=== PATIENT | female | born 2000 | race Caucasian/White ===

== ENCOUNTER 2018-10-20 14:01 | Emergency (ER) | payer BC, OTHER ==
[2018-10-20 14:08] VITALS: TEMP 98.5
--- NOTE | 2018-10-20 14:11 | PDOC ---
Rapid Medical Evaluation Time Seen by Provider: 10/20/18 14:05 Medical Evaluation: 10/20/18 14:06 I have performed a brief in-person evaluation of this patient. The patient presents with a chief complaint of: lower right quadrant, + vomiting , Pertinent physical exam findings: Abd, S/NT I have ordered the following: UA/ UcG, Ucx The patient will proceed to the ED for further evaluation. 10/20/18 14:06 10/20/18 14:09
[2018-10-20] MEDS ORDERED: SODIUM CHLORIDE 1,000 ML IV STA (14:43)
[2018-10-20] MEDS ORDERED: ONDANSETRON 4 MG/2 ML VIAL IVPB ONE (14:43)
[2018-10-20] MEDS ORDERED: ACETAMINOPHEN 1000 MG/100 ML VIAL (NON FORMULARY) IVPB ONE (14:43)
--- NOTE | 2018-10-20 14:43 | PDOC ---
Attending Attestation - Resident Resident Name: SophiaSaRadha - ED Attending Attestation I have performed the following: I have examined & evaluated the patient, The case was reviewed & discussed with the resident, I agree w/resident's findings & plan, Exceptions are as noted - HPI HPI: 10/20/18 15:17 Ms. 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 ENT: Ears normal, nares patent, oropharynx clear without exudates. Moist mucous membranes. No tonsillar enlargement, no exudates NECK: Normal range of motion, supple LUNGS: Breath sounds equal, clear to auscultation bilaterally. No wheezes, and no crackles. HEART:Regular rate and rhythm, normal S1 and S2 without murmur, rub or gallop. ABDOMEN: Soft, RLQ tenderness to palpation EXTREMITIES: Normal range of motion, no edema. NEUROLOGICAL: Cranial nerves II through XII grossly intact. Normal speech. No focal neurological deficits. SKIN: Warm, Dry, normal turgor, no rashes or lesions noted. 10/20/18 15:23 - Medical Decision Making 10/20/18 15:24 18 yo F presenting with RLQ pain DD includes but is not limited to: Torsion, Ruptured OV cyst, Appendicitis, Colitis, intra-abdominal abscess Will do: Labs UA [facility] [place] Labs wnl U/S pending Signed out to Dr. Escoto
[2018-10-20] MEDS ORDERED: ACETAMINOPHEN INJECTION 100 ML IVPB ONE ×2 (14:55→15:13)
[2018-10-20] MEDS ORDERED: ONDANSETRON 4 MG/2 ML VIAL ONE ×2 (14:56→15:14)
--- NOTE | 2018-10-20 15:21 | PDOC ---
History of Present Illness - General Chief Complaint: Pain, Acute Stated Complaint: RT. ABD. PAIN Time Seen by Provider: 10/20/18 14:05 History Source: Patient Exam Limitations: No Limitations - History of Present Illness Initial Comments: 10/20/18 15:13 Pt is a 18yo F with no significant PMH presenting to ED with RLQ pain x1 week. Pain is in the RLQ, does not radiate, associated with lower back pain, worsened by walking, alleviated but not eliminated with rest, feels achy. She has had similar pains in the past, most recent 3-4 months ago but she did not seek care at that time and pain has been worse than previous episodes. Associated with nausea and vomiting when pain is high but she is tolerating po intake. Also endorses chills. LMP was 2 weeks ago, is irregular (has periods more than once/ month). Denies fever, diarrhea, constipation, dysuria, flank pain, vaginal discharge, spotting, rashes, anorexia, chest pain, sob, headache. She has had 1 sexual partner for the past 3 months, no history of STD's. She denies taking medications, but is on nausea medications given to her from urgent care. PMD: PMH: none PSH: none Meds: none Allergies: nkda Past History - Past Medical History Allergies/Adverse Reactions: Allergies Allergy/AdvReac Type Severity Reaction Status Date / Time No Known Allergies Allergy Verified 10/20/18 14:08 Home Medications: Ambulatory Orders Ibuprofen 600 mg PO TID #15 tablet 10/20/18 COPD: No - Suicide/Smoking/Psychosocial Hx Smoking History: Current every day smoker Number of Cigarettes Smoked Daily: 10 Information on smoking cessation initiated: No Hx Alcohol Use: Yes (DAILY) Drug/Substance Use Hx: No Review of Systems - Review of Systems Constitutional: Yes: Chills. No: Fever HEENTM: No: Symptoms Reported Respiratory: No: Symptoms reported Cardiac (ROS): No: Symptoms Reported ABD/GI: Yes: See HPI, Nausea, Vomiting, Abdominal cramping. No: Constipated, Diarrhea, Rectal Bleeding, Tarry Stools : No: Burning, Dysuria, Flank Pain, Hematuria Musculoskeletal: No: Back Pain, Joint Pain Integumentary: No: Symptoms Reported Neurological: No: Headache, Numbness, Seizure *Physical Exam - Vital Signs Last Vital Signs Temp Pulse Resp BP Pulse Ox 98.5 F 110 H 10 141/90 100 10/20/18 14:05 10/20/18 14:05 10/20/18 14:05 10/20/18 14:05 10/20/18 14:05 - Physical Exam General Appearance: Yes: Nourished, Appropriately Dressed. No: Apparent Distress HEENT: positive: EOMI, SHERRILL, Normal ENT Inspection Neck: positive: Trachea midline, Supple. negative: Lymphadenopathy (R), Lymphadenopathy (L) Respiratory/Chest: positive: Lungs Clear, Normal Breath Sounds Cardiovascular: positive: Regular Rhythm, Regular Rate. negative: Murmur Vascular Pulses: Dorsalis-Pedis (R): 2+, Doralis-Pedis (L): 2+ Female Pelvic Exam: positive: normal size ovaries. negative: CMT, adnexal tenderness Gastrointestinal/Abdominal: positive: Normal Bowel Sounds, Soft, Rebound (RLQ), Tenderness (RLQ). negative: Guarding Musculoskeletal: negative: CVA Tenderness Extremity: positive: Normal Capillary Refill. negative: Pedal Edema Integumentary: positive: Normal Color, Dry, Warm Neurologic: positive: flute polisher II-XII NML intact, Fully Oriented, Alert, Normal Mood/ Affect, Normal Response, Motor Strength 5/ ED Treatment Course - LABORATORY CBC & Chemistry Diagram: 10/20/18 15:00 10/20/18 15:00 - RADIOLOGY Radiology Studies Ordered: Category Date Time Status ABDOMEN US [US] Stat Ultrasound 10/20/18 14:43 Ordered TRANSVAGINAL ULTRASOUND US [US] Stat Ultrasound 10/20/18 14:43 Ordered Medical Decision Making - Medical Decision Making 10/20/18 15:21 Pt is a 18yo F with no significant PMH presenting to ED with RLQ pain x1 week. Pain is in the RLQ, does not radiate, associated with lower back pain, worsened by walking, alleviated but not eliminated with rest, feels achy. She has had similar pains in the past, most recent 3-4 months ago but she did not seek care at that time and pain has been worse than previous episodes. Associated with nausea and vomiting when pain is high but she is tolerating po intake. Also endorses chills. LMP was 2 weeks ago, is irregular (has periods more than once/ month). Denies fever, diarrhea, constipation, dysuria, flank pain, vaginal discharge, spotting, rashes, anorexia, chest pain, sob, headache. She has had 1 sexual partner for the past 3 months, no history of STD's. She denies taking medications, but is on nausea medications given to her from urgent care. Vitals: tachycardia PE: RLQ tenderness +rebound, NO adnexal tenderness, no CMT, no flank tenderness. DDx includes but not limited to appendicitis, torsion, TOA, PID, Cyst, , colitis, kidney stone, pyelonephritis, uti, colitis, menstrual cramping, msk -UA, UCx, Upreg, cbc, cmp, lipase -TVUS, abdominal US to check for appendicitis. If appendix cannot be visualized , considering CTAP -IV fluids, IV tylenol Pt feeling slightly better. LAbs wnl. negative , negative ua, no white count. US: l and r ovarian cysts, no other pathology, appendix not visualized. CTAP ordered with iv contrast: ruptured ovarian cyst. No other signs of appendicitis although appendix could not be properly visualized. given lack of white count, pain getting better, pt tolerating po, afebrile, less likely appendicitis. most likely ruptured cyst. Given referral to sr vice president and rx for ibuprofen. safe for dc home. pt understands and agrees to plan. given return precautions. *DC/Admit/Observation/Transfer Diagnosis at time of Disposition: Ruptured ovarian cyst - Discharge Dispostion Disposition: HOME Condition at time of disposition: Improved Decision to Admit order: No - Prescriptions Prescriptions: Ibuprofen 600 mg PO TID #15 tablet - Referrals Referrals: Aggie March DO [Staff Physician] - - Patient Instructions Printed Discharge Instructions: DI for Ovarian Cyst Additional Instructions: You were seen in the emergency room today for pain in the right side. The CT scan showed a ruptured ovarian cyst. Cysts can be normal, the ultrasound showed multiple cysts on both ovaries. I recommend making an appointment with an powerhouse engineer. Information is provided below. You can take ibuprofen or Advil for the pain as needed. A prescription for ibuprofen was sent to your pharmacy. Please take as directed. You can also apply ice packs. Please come back to the emergency room if pain gets worse, you develop fever or if any new concerning symptom develops. Thank you - Post Discharge Activity
[2018-10-20 15:24] LABS: BASO % 0.8 % (0-2.0); HEMATOCRIT 41.2 % (32.4-45.2); HEMOGLOBIN 13.6 GM/dL (10.7-15.3); MCH 27.9 pg (25.7-33.7); MEAN CELL VOLUME 84.5 fl (80-96); MEAN PLT VOLUME 8.1 fl (7.5-11.1); MONO % 10.4 % (3.8-10.2); NEUT % 54.8 % (42.8-82.8); PLATELET COUNT 332 K/MM3 (134-434); RBC 4.88 M/mm3 (3.60-5.2); RDW 15.8 % (11.6-15.6); WHITE BLOOD COUNT 5.9 K/mm3 (4.0-10.0)
[2018-10-20 15:27] LABS: EPI CELLS 6.1 /HPF (0-5/HPF); HYALINE CASTS 12 /lpf (0-8); PH,URINE >= 9.0 (5.0-8.0); URINE APPEARANCE CLEAR; URINE BILIRUBIN NEGATIVE (NEGATIVE); URINE COLOR DK YELLOW; URINE GLUCOSE (UA) NEGATIVE (NEGATIVE); URINE KETONE TRACE (NEGATIVE); URINE LEUK ESTERASE TRACE (NEGATIVE); URINE NITRITE NEGATIVE (NEGATIVE); URINE PROTEIN 1+ (NEGATIVE); URINE RBC 2 /hpf (0-4); URINE WBC 2 /hpf (0-5)
[2018-10-20 15:50] LABS: ALBUMIN 4.4 g/dl (3.4-5.0); BILIRUBIN,TOTAL 0.4 mg/dL (0.2-1); BLOOD UREA NITROGEN 7.1 mg/dL (7-18); CALCIUM 9.6 mg/dL (8.5-10.1); CREATININE 0.7 mg/dL (0.55-1.3); POTASSIUM 4.4 mmol/L (3.5-5.1); TOT PROT 8.3 g/dl (6.4-8.2)
[2018-10-20] MEDS ORDERED: IBUPROFEN 600 MG TABLET (FP) PO ONE ×2 (18:20→18:29)
[2018-10-20 18:36] VITALS: BP 115/76; PULSE 66
== END 2018-10-20 18:37 | disposition home or self-care (01) ==
LOC: JER 14:01
PROC: 3E033GC Introduction of Other Therapeutic Substance into Peripheral Vein, Percutaneous Approach (ICD-10-PCS; principal; 2018-10-20)
PROC: 3E033NZ Introduction of Analgesics, Hypnotics, Sedatives into Peripheral Vein, Percutaneous Approach (ICD-10-PCS; 2018-10-20)
DX: N83.201 Unspecified ovarian cyst, right side (principal); N83.202 Unspecified ovarian cyst, left side
CPT/HCPCS: 36415; 74177-TC; 76830-TC; 76856-TC; 80053; 81003; 83605; 83690; 84703; 85025; 87086; 99283-25; J0131; J7030

== ENCOUNTER 2024-03-03 06:25 | Inpatient (IN) | payer BC, OTHER ==
[2024-03-03] MEDS: ELECTROLYTE-148 SOLN 1,000 ML IV SCH (08:05)
[2024-03-03] MEDS ORDERED: AMPICILLIN SODIUM 2 GM VIAL ONE (08:06)
[2024-03-03] MEDS: AMPICILLIN - 2 GM in SODIUM CHLORIDE 100 ML IVPB ONE (08:10)
[2024-03-03 08:28] LABS: BASO % 0.3 % (0-2.0); EOS % 0.2 % (0-4.5); HEMATOCRIT 36.4 % (32.4-45.2); HEMOGLOBIN 12.3 GM/dL (10.7-15.3); MCH 29.2 pg (25.7-33.7); MCHC 33.8 g/dl (32.0-36.0); MEAN CELL VOLUME 86.3 fl (80-96); MEAN PLT VOLUME 9.1 fl (7.5-11.1); MONO % 4.9 % (3.8-10.2); NEUT % 79.6 % (42.8-82.8); PLATELET COUNT 201 10^3/uL (134-434); RBC 4.22 M/mm3 (3.60-5.2); WHITE BLOOD COUNT 9.5 K/mm3 (4.0-10.0)
[2024-03-03 08:32] VITALS: BMI 30.2
[2024-03-03 08:35] LABS: INR 0.86 (0.83-1.09); PROTHROMBIN TIME (PATIENT) 9.9 SEC (9.7-13.0)
[2024-03-03 08:38] LABS: ACTIVATED PTT 27.8 SECONDS (25.2-36.5)
[2024-03-03 08:54] LABS: POTASSIUM 3.7 mmol/L (3.5-5.1)
[2024-03-03 08:55] LABS: CALCIUM 9.1 mg/dL (8.5-10.1)
[2024-03-03 08:56] LABS: BLOOD UREA NITROGEN 9.6 mg/dL (7-18)
[2024-03-03] MEDS ORDERED: NALOXONE HCL 0.4 MG/ML VIAL IVPUSH PRN (08:57)
[2024-03-03] MEDS ORDERED: FENTANYL/BUPIVACAINE/NS/PF - PCEA - 50 ML DISP.SYRIN EP ONE ×2 (08:59→12:00)
[2024-03-03 09:00] LABS: CREATININE 0.5 mg/dL (0.55-1.3)
[2024-03-03] MEDS: FENTANYL/BUPIVACAINE/NS/PF - PCEA - 50 ML DISP.SYRIN EP SCH (09:10)
[2024-03-03] MEDS ORDERED: AMPICILLIN SODIUM 1 GM VIAL ONE (11:45)
[2024-03-03] MEDS: AMPICILLIN - 1 GM in SODIUM CHLORIDE 100 ML IVPB SCH (11:53)
[2024-03-03 12:06] LABS: HEPATITIS B SURFACE AG MATERN NON-REACTIVE (NONREACTIVE)
[2024-03-03 12:07] LABS: SYPHILIS W/ RPR CONF NON-REACTIVE (NONREACTIVE)
[2024-03-03] MEDS ORDERED: OXYTOCIN 20 UNITS in 0.9% NS 20 UNIT/1,000 ML INFUS.BAG IV ONE ×2 (12:28→15:53)
[2024-03-03] MEDS: OXYTOCIN 20 UNITS in 0.9% NS 20 UNIT/1,000 ML INFUS.BAG IV SCH (12:43)
[2024-03-03] MEDS ORDERED: LIDOCAINE HCL 1% PRESERVATIVE FREE - 30ML VIAL ONE (12:46)
[2024-03-03] MEDS ORDERED: METHYLERGONOVINE MALEATE 0.2 MG/1 ML AMP IM PRN (13:10)
[2024-03-03] MEDS ORDERED: BISACODYL 10 MG SUPP.RECT RC PRN (13:10)
[2024-03-03] MEDS ORDERED: ACETAMINOPHEN 325 MG TABLET (FP) PO PRN (13:10)
[2024-03-03 17:20] LABS: HIV INTERPRETATION NEGATIVE (NEGATIVE)
[2024-03-03] MEDS: IBUPROFEN 600 MG TABLET (FP) PO PRN (18:20)
[2024-03-03] MEDS: WITCH HAZEL 50% (TUCKS) 40 PAD/JAR PAD TP PRN (20:00)
[2024-03-04 08:26] LABS: BASO % 0.5 % (0-2.0); EOS % 1.2 % (0-4.5); HEMATOCRIT 31.6 % (32.4-45.2); HEMOGLOBIN 10.6 GM/dL (10.7-15.3); LYMPH % 25.8 % (8-40); MCH 29.6 pg (25.7-33.7); MCHC 33.5 g/dl (32.0-36.0); MEAN CELL VOLUME 88.3 fl (80-96); MEAN PLT VOLUME 8.8 fl (7.5-11.1); MONO % 8.4 % (3.8-10.2); NEUT % 64.1 % (42.8-82.8); PLATELET COUNT 185 10^3/uL (134-434); RBC 3.57 M/mm3 (3.60-5.2); WHITE BLOOD COUNT 9.3 K/mm3 (4.0-10.0)
[2024-03-04] MEDS: BENZOCAINE 20% 57 GM BOTTLE TP PRN (10:44)
[2024-03-04] MEDS: ESCITALOPRAM OXALATE 10 MG TABLET PO SCH (10:45)
[2024-03-04 21:43] VITALS: RESP 18
[2024-03-04] MEDS ORDERED: SENNOSIDES/DOCUSATE COMBO (SENNA PLUS) TABLET (UD) PO PRN (22:00)
[2024-03-05 09:24] VITALS: BP 103/56; PULSE 62; TEMP 98
[2024-03-05] MEDS: BENZOCAINE 28 GM HEMORRHOIDAL OINTMENT TP PRN (10:05)
== END 2024-03-05 13:58 | disposition home or self-care (01) | DRG 560 ==
LOC: JDEL 06:25 → JLDR 07:55 → J3W 16:00
PROVIDERS: ADMIT Student in an Organized Health Care Education/Training Program; ATTEND Student in an Organized Health Care Education/Training Program
PROC: 10E0XZZ Delivery of Products of Conception, External Approach (ICD-10-PCS; principal; 2024-03-03)
PROC: 0HQ9XZZ Repair Perineum Skin, External Approach (ICD-10-PCS; 2024-03-03)
PROC: 0W8NXZZ Division of Female Perineum, External Approach (ICD-10-PCS; 2024-03-03)
DX: O70.0 First degree perineal laceration during delivery (principal); Z3A.37 37 weeks gestation of pregnancy; Z37.0 Single live birth
CPT/HCPCS: 36415; 59409; 80048; 85025; 85461; 85610; 85730; 86780; 86803; 86850; 86870; 86880; 86900; 86901; 86902; 87340; 87389; 96372; J2790